=== PATIENT | female | born 1985 | race American Indian/Alaskan Native ===

== ENCOUNTER 2016-04-29 13:36 | Outpatient (CLI) | payer OTHER ==
[2016-04-29 14:56] LABS: Bilirubin,Urine NEG (Negative); Blood,Urine NEG (Negative); Ketones,Urine NEG (Negative); Leukocyte Esterase,Urine NEG (Negative); Mucus,Urine FEW /HPF; Nitrite,Urine NEG (Negative); Protein,Urine <15 mg/dL mg/dL (Negative); Urobilinogen,Urine < 2.0 mg/dL (<2.0)
[2016-04-29 15:03] LABS: Hematocrit 35.6 % (30.3-42.9); Hemoglobin 11.4 gm/dl (10.1-14.3); Mean Corpuscular HGB Conc 32 % (30-34); Mean Corpuscular Hemoglobin 29 pg (28-32); Mean Corpuscular Volume 91 fl (79-97); Platelet Count 277 K/mm3 (140-440); Red Blood Count 3.91 M/mm3 (3.65-5.03); Red Cell Distribution Width 15.2 % (13.2-15.2); White Blood Count 8.3 K/mm3 (4.5-11.0)
[2016-04-29 15:28] LABS: Alanine Aminotransferase 24 units/L (7-56); Lactate Dehydrogenase 169 units/L (91-180); Uric Acid 4.6 mg/dL (3.5-7.6)
[2016-04-29] MEDS ORDERED: LACTATED RINGERS 500 ML IV ONE (15:35)
[2016-04-29 16:21] VITALS: BP 133/61
== END 2016-04-29 16:40 | disposition home or self-care (01) ==
LOC: TRG 13:36
PROVIDERS: ATTEND Obstetrics & Gynecology
DX: O47.03 False labor before 37 completed weeks of gestation, third trimester (principal); Z3A.31 31 weeks gestation of pregnancy
CPT/HCPCS: 36415; 59025; 81001; 82565; 82962; 83615; 84450; 84460; 84550; 85027

== ENCOUNTER 2016-05-18 23:02 | Inpatient (IN) | payer OTHER ==
[2016-05-18] MEDS ORDERED: LACTATED RINGERS 500 ML IV ONE (23:10)
[2016-05-18] MEDS ORDERED: LACTATED RINGERS 1,000 ML ONE (23:51)
[2016-05-19] MEDS ORDERED: MAGNESIUM SULFATE 4GM/100ML 4 GM/100 ML BAG IV ONE ×2 (00:06→01:21)
[2016-05-19] MEDS ORDERED: MAGNESIUM SULFATE 40GM/1000ML 40 GM/1,000 ML BAG IV ONE (00:06)
[2016-05-19] MEDS ORDERED: APRESOLINE ONE (00:06)
[2016-05-19] MEDS: LACTATED RINGERS 1,000 ML IV SCH ×3 (00:10→10:46)
[2016-05-19] MEDS: APRESOLINE IV PRN ×4 (00:18→18:33)
[2016-05-19] MEDS: MAGNESIUM SULFATE 40GM/1000ML 40 GM/1,000 ML BAG IV SCH ×2 (00:40→19:18)
[2016-05-19] MEDS ORDERED: STADOL ONE (00:41)
[2016-05-19] MEDS: STADOL IV PRN ×2 (00:50→03:10)
[2016-05-19] MEDS ORDERED: POLYCILLIN/NS 2 GM/100 ML 2 GM/100 ML BAG IV ONE (01:18)
[2016-05-19] MEDS ORDERED: MINERAL OIL PO PRN ×2 (01:18→10:00)
[2016-05-19] MEDS ORDERED: ePHEDrine SULFATE IV PRN ×3 (01:18→10:00)
[2016-05-19] MEDS ORDERED: BRETHINE IVP PRN ×2 (01:18→10:00)
[2016-05-19] MEDS ORDERED: ZOFRAN IV PRN ×2 (01:18→16:48)
[2016-05-19] MEDS ORDERED: XYLOCAINE 2% INFILTRATI ONE ×2 (01:18→10:00)
[2016-05-19] MEDS ORDERED: BRETHINE SUB-Q PRN ×2 (01:18→10:00)
[2016-05-19 01:45] LABS: Bilirubin,Urine NEG (Negative); Blood,Urine MOD (Negative); Ketones,Urine NEG (Negative); Leukocyte Esterase,Urine NEG (Negative); Mucus,Urine FEW /HPF; Nitrite,Urine NEG (Negative); Urobilinogen,Urine < 2.0 mg/dL (<2.0)
[2016-05-19 01:46] LABS: Hematocrit 35.4 % (30.3-42.9); Hemoglobin 11.8 gm/dl (10.1-14.3); Mean Corpuscular HGB Conc 33 % (30-34); Mean Corpuscular Hemoglobin 30 pg (28-32); Mean Corpuscular Volume 90 fl (79-97); Platelet Count 280 K/mm3 (140-440); Red Blood Count 3.92 M/mm3 (3.65-5.03); Red Cell Distribution Width 15.6 % (13.2-15.2); White Blood Count 10.4 K/mm3 (4.5-11.0)
[2016-05-19] MEDS ORDERED: LACTATED RINGERS 1,000 ML IV SCH ×3 (02:00→16:48)
[2016-05-19 02:02] LABS: Alanine Aminotransferase 22 units/L (7-56)
[2016-05-19] MEDS ORDERED: NORMODYNE IV ONE (03:21)
[2016-05-19] MEDS ORDERED: ePHEDrine SULFATE ONE (04:05)
[2016-05-19 04:15] LABS: Urine Drugs of Abuse Note Disclamer
[2016-05-19 04:17] LABS: Lactate Dehydrogenase 386 units/L (91-180); Uric Acid 4.7 mg/dL (3.5-7.6)
[2016-05-19] MEDS ORDERED: NARCAN 2 MG/2 ML IV PRN (05:13)
--- NOTE | 2016-05-19 05:15 | Anesthesia Consultation ---
Anesthesia Consult and Med Hx Date of service: 05/19/16 - Airway Anesthetic Teeth Evaluation: Good ROM Head & Neck: Adequate Mental/Hyoid Distance: Adequate Mallampati Class: Class III Intubation Access Assessment: Possibly Difficult - Pulmonary Exam CTA: Yes - Cardiac Exam Cardiac Exam: RRR - Pre-Operative Health Status ASA Pre-Surgery Classification: ASA3 Proposed Anesthetic Plan: Epidural, Spinal - Pulmonary Hx Asthma: No COPD: No Hx Pneumonia: No - Cardiovascular System Hx Hypertension: Yes (pre-eclampsia) Hx Coronary Artery Disease: No - Central Nervous System Hx Seizures: No Hx Psychiatric Problems: No - Endocrine Hx Renal Disease: No Hx End Stage Renal Disease: No Hx Hypothyroidism: No Hx Hyperthyroidism: No - Hematic Hx Anemia: No Hx Sickle Cell Disease: No - Other Systems Hx Alcohol Use: No Hx Obesity: Yes (morbid, bmi >40)
[2016-05-19] MEDS ORDERED: fentaNYL-BUPIV 2 MCG/ML-0.125% 200 MCG/100 ML BAG EPIDURAL SCH (06:00)
[2016-05-19] MEDS: POLYCILLIN/NS 1 GM/50 ML 1 GM/50 ML BAG IV SCH ×3 (06:20→10:10)
[2016-05-19] MEDS ORDERED: CELESTONE SOLUSPAN IM NR (08:44)
--- NOTE | 2016-05-19 09:00 | History and Physical Report ---
History of Present Illness Date of examination: 05/19/16 Date of admission: 05/18/16 23:50 Chief complaint: rupture of membranes, elevated blood pressures History of present illness: Pt is a 31 year old female BARRY 06/27/16 at 34w3d who presents with rupture of membranes ar 8 or 9 pm on Tuesday May 17, 2016. She also began to have irregular contractions at that time. She denies vaginal bleeding. She has had care complicated by Gestational Diabetes with total non- compliance with no monitoring of her blood glucose level, and denial of this diagnosis on multiple occasions, morbid obesity, questionable chronic hypertension previously, genital herpes with no evidence of outbreak or prodrome , trichomonas treated with negative test of cure on 03/27/16, two vessel cord, uterine fibroids, and poor obstetric history with four previous spontaneous abortions prescribed vaginal progesterone. She is GBS unknown. 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: herpes (no lesions or prodrome ), trichomonas (treated with negative test of cure ) Family/Genetic History: heart disease, hypertension Social history: no significant social history, - Obstetrical History Expected Date of Delivery: 06/27/16 Actual Gestation: 34 Week(s) 3 Day(s) : 5 Para: 0 Hx # Term Pregnancies: 0 Number of Pregnancies: 0 Spontaneous Abortions: 4 Induced : 0 Number of Living Children: 0 Medications and Allergies Allergies Allergy/AdvReac Type Severity Reaction Status Date / Time No Known Allergies Allergy Verified 05/18/16 23:09 Home Medications Medication Instructions Recorded Confirmed Last Taken Type No Known Home Medications [No 11/17/15 05/18/16 Unknown History Reported Home Medications] Active Meds: Active Medications Betamethasone Acet/Betameth SodPhos (Celestone Soluspan) 12 mg IM ONCE ONE Stop: 05/19/16 08:45 Butorphanol Tartrate (Stadol) 2 mg IV Q2H PRN PRN Reason: Pain , Severe (7-10) Last Admin: 05/19/16 03:10 Dose: 2 mg Dextrose (D50w (25gm)) 50 ml IV PRN PRN PRN Reason: Hypoglycemia Ephedrine Sulfate (Ephedrine Sulfate) 10 mg IV Q2M PRN PRN Reason: Hypotension Stop: 05/19/16 08:52 Fentanyl (Sublimaze) 100 mcg IV Q2H PRN PRN Reason: Labor Pain Hydralazine HCl (Apresoline) 5 mg IV Q30MIN PRN PRN Reason: Blood Pressure Last Admin: 05/19/16 02:19 Dose: 5 mg Lactated Ringer's (Lactated Ringers) 1,000 mls @ 125 mls/hr IV DIRECT CHAYITO Last Admin: 05/19/16 04:13 Dose: 75 mls/hr Ampicillin Sodium (Polycillin/Ns 1 Gm/50 Ml) 1 gm in 50 mls @ 100 mls/hr IV Q4HR CHAYITO PRN Reason: Protocol Last Admin: 05/19/16 07:03 Dose: Not Given Oxytocin/Sodium Chloride (Pitocin/Ns 20 Unit/1000ml Drip) 20 units in 1,000 mls @ 125 mls/hr IV DIRECT CHAYITO Magnesium Sulfate (Magnesium Sulfate 40gm/1000ml) 40 gm in 1,000 mls @ 50 mls/ hr IV DIRECT CHAYITO PRN Reason: 2 GM/HR Last Admin: 05/19/16 00:40 Dose: 2 gm/hr, 50 mls/hr Fentanyl/Bupivacaine/Sodium Chlor (Fentanyl-Bupiv 2 Mcg/Ml-0.125%) 200 mcg in 100 mls @ 12 mls/hr EPIDURAL TITR CHAYITO PRN Reason: Protocol Last Admin: 05/19/16 05:30 Dose: 12 mls/hr Lactated Ringer's (Lactated Ringers) 1,000 mls @ 125 mls/hr IV DIRECT CHAYITO Oxytocin/Sodium Chloride (Pitocin/Ns 20 Unit/1000ml Drip) 20 units in 1,000 mls @ 125 mls/hr IV DIRECT CHAYITO Oxytocin/Sodium Chloride (Pitocin/Ns 30 Unit/500ml) 30 units in 500 mls @ 2 mls /hr IV TITR CHAYITO PRN Reason: Protocol Insulin Human Regular (Novolin R) 0 units SUB-Q Q2H CHAYITO PRN Reason: Protocol Lidocaine (Xylocaine 2%) 20 ml INFILTRATI ONCE ONE Stop: 05/19/16 08:48 Mineral Oil (Mineral Oil) 30 ml PO QHS PRN PRN Reason: Constipation Mineral Oil (Mineral Oil) 30 ml PO QHS PRN PRN Reason: Constipation Ondansetron HCl (Zofran) 4 mg IV Q8H PRN PRN Reason: Nausea And Vomiting Terbutaline Sulfate (Brethine) 0.25 mg SUB-Q ONCE PRN PRN Reason: Hyperstimulation/Hypertonicity Stop: 05/19/16 08:48 Terbutaline Sulfate (Brethine) 0.25 mg IVP ONCE PRN PRN Reason: Hyperstimulation/Hypertonicity Stop: 05/19/16 08:48 Review of Systems All systems: negative - Vital Signs Vital signs: Vital Signs Temp Pulse BP 97.9 F 99 H 181/88 05/18/16 23:11 05/18/16 23:11 05/18/16 23:11 Temp Pulse Resp BP Pulse Ox 98.4 F 112 H 22 134/58 100 05/19/16 06:26 05/19/16 08:48 05/19/16 06:26 05/19/16 08:41 05/19/16 08:48 - Physical Exam Breasts: Positive: deferred Cardiovascular: Regular rate Lungs: Positive: Clear to auscultation Abdomen: Positive: soft (obese, gravid ) Genitourinary (Female): Positive: normal external genitalia Uterus: Positive: enlarged (gravid ) Extremities: Positive: normal - Obstetrical FHR: category 2 Uterine Contraction Monitor Mode: External Cervical Dilatation: 8 Cervical Effacement Percentage: 100 station: -2 Uterine Contraction Pattern: Irregular Uterine Tone Measurement Phase: Resting Uterine Contraction Intensity: Moderate Results Result Diagrams: 05/19/16 00:05 05/19/16 00:05 Abnormal lab results 05/19/16 05/19/16 05/19/16 Range/Units 00:05 00:05 00:05 RDW 15.6 H (13.2-15.2) % AST 41 H (5-40) units/L Lactate Dehydrogenase 386 H (91-180) units/L Urine WBC (Auto) 12.0 H (0.0-6.0) /HPF All other labs normal. Assessment and Plan A: IUP at 34w3d PPROM Prolonged Rupture of Membranes Chronic hypertension with Gestational Diabetes- Non-Compliant Two Vessel Umbilical Cord Morbid Obesity Genital Herpes Poor Obstetric History Fibroid Uterus Trichomonas- treated with negative test of cure GBS unknown P: Admit to labor and delivery. GBS prophylaxis with Ampicillin. Accuchek every hour. Dose of steroids since pt is less than 36 wks. Pitocin augmentation.
[2016-05-19] MEDS ORDERED: D50W (25GM) IV PRN (10:00)
[2016-05-19] MEDS ORDERED: PITOCin/NS 20 UNIT/1000ML DRIP 20 UNITS/1,000 ML BAG IV SCH ×2 (10:00→16:48)
[2016-05-19] MEDS ORDERED: SUBLIMAZE IV PRN (10:00)
[2016-05-19] MEDS: PITOCin/NS 30 UNIT/500ML 30 UNITS/500 ML BAG IV SCH ×2 (10:01→10:47)
--- NOTE | 2016-05-19 12:00 | Procedure Note ---
OB Delivery Note - Delivery Date of Delivery: 05/19/16 Surgeon: NATASHA OGLESBY Estimated blood loss: other (400 mL) - Vaginal Delivery presentation: vertex Delivery position: OA Intrapartum events: PROM->1hr before delivery, preeclampsia, decreased FHT variability, mult.variable deceleratio Delivery augmentation: pitocin Delivery monitor: external FHT, external uterine Route of delivery: Delivery placenta: spontaneous Delivery cord: nuchal cord, 2 umbilical vessels Episiotomy: none Delivery laceration: none Anesthesia: epidural Delivery comments: Patient progressed to complete/complete/+2 impression delivered a viable male via spontaneous vaginal delivery under epidural anesthesia over intact perineum. Head delivered in ZACHERY position followed by shoulders and body. Nuchal cord and body cord 1 delivered through. Cord was clamped and cut was handed to NICU staff in attendance. Placenta delivered spontaneously, intact. The vagina and perineum explored. No lacerations noted. Estimated blood loss 400 mL. - A at 1 minute: 6 at 5 minutes: 8 Infant Gender: Male (@1139 am; 1910g (4lb 3oz))
[2016-05-19] MEDS: PITOCin/NS 20 UNIT/1000ML DRIP 20 UNITS/1,000 ML BAG IV SCH ×2 (13:03→21:28)
[2016-05-19] MEDS ORDERED: TUCKS PAD TP PRN (16:48)
[2016-05-19] MEDS ORDERED: CALCIUM GLUCONATE IV ONE (16:48)
[2016-05-19] MEDS ORDERED: TYLENOL PO PRN (16:48)
[2016-05-19] MEDS ORDERED: BENADRYL PO PRN (16:48)
[2016-05-19] MEDS ORDERED: DULCOLAX PR PRN (16:48)
[2016-05-19] MEDS ORDERED: NORCO 5/325 PO PRN (16:48)
[2016-05-19] MEDS ORDERED: PHENERGAN PO PRN (16:48)
[2016-05-19] MEDS ORDERED: SODIUM CHLORIDE FLUSH SYRINGE 10 ML IV NR (16:48)
[2016-05-19] MEDS ORDERED: DERMOPLAST TP PRN (16:48)
[2016-05-19] MEDS ORDERED: LANSINOH TP PRN (16:48)
[2016-05-19] MEDS ORDERED: PHENERGAN PR PRN (16:48)
[2016-05-19] MEDS ORDERED: MILK OF MAGNESIA PO PRN (16:48)
[2016-05-19] MEDS ORDERED: CALCIUM GLUCONATE 1,000 MG in NACL 0.9% 100 ML IV ONE (18:00)
[2016-05-19] MEDS: MOTRIN PO SCH (18:33)
[2016-05-19] MEDS: FEOSOL PO SCH (21:29)
[2016-05-20] MEDS ORDERED: BOOSTRIX IM ONE (06:00)
[2016-05-20 06:12] LABS: Hematocrit 35.9 % (30.3-42.9); Hemoglobin 11.2 gm/dl (10.1-14.3); Mean Corpuscular HGB Conc 31 % (30-34); Mean Corpuscular Hemoglobin 29 pg (28-32); Mean Corpuscular Volume 92 fl (79-97); Platelet Count 271 K/mm3 (140-440); Red Blood Count 3.91 M/mm3 (3.65-5.03); Red Cell Distribution Width 16.3 % (13.2-15.2)
[2016-05-20 06:30] LABS: White Blood Count 22.9 K/mm3 (4.5-11.0)
--- NOTE | 2016-05-20 08:43 | Progress Note ---
Assessment and Plan - Patient Problems (1) Chronic hypertension affecting Current Visit: Yes Status: Acute Plan to address problem: discontinue magnesium 24hrs after delivery will initiate antihypertensive (2) Gestational diabetes mellitus (GDM) affecting Current Visit: Yes Status: Acute (3) premature rupture of membranes Current Visit: Yes Status: Acute Qualifiers: PROM onset of labor timing: P Subjective - Subjective Date of service: 05/20/16 Interval history: Patient receiving magnesium therapy. She is currently without complaints. She admits to a history of chtn but she was not taking her meds. is currently in the NICU. Patient reports: appetite normal, pain well controlled [place]: in NICU Objective - Vital Signs Latest vital signs: Vital Signs Temp Pulse Pulse Resp BP BP Pulse Ox 05/20/16 07:35 97.9 F 85 22 153/72 05/20/16 06:45 85 18 149/78 05/20/16 05:05 98.1 F 86 20 137/69 05/20/16 02:07 90 150/72 05/20/16 00:30 98.4 F 87 20 171/71 05/19/16 22:30 79 20 161/89 05/19/16 20:10 98.5 F 89 20 160/90 05/19/16 18:33 86 171/83 05/19/16 18:30 86 171/83 05/19/16 16:35 99.2 F 88 20 155/107 05/19/16 15:15 99 H 156/75 05/19/16 15:00 106 H 197/94 05/19/16 14:45 106 H 144/70 05/19/16 14:30 98 H 135/63 05/19/16 14:24 97 H 94 05/19/16 14:19 99 H 95 05/19/16 14:18 98 H 94 05/19/16 14:15 96 H 133/56 05/19/16 14:14 100 H 95 05/19/16 14:13 100 H 94 05/19/16 14:09 101 H 95 05/19/16 14:07 102 H 94 05/19/16 14:04 102 H 94 05/19/16 14:02 103 H 94 05/19/16 14:00 93 H 95 H 18 140/64 140/64 95 05/19/16 13:59 95 H 95 05/19/16 13:57 100 H 94 05/19/16 13:54 100 H 96 05/19/16 13:50 104 H 93 05/19/16 13:49 101 H 95 05/19/16 13:45 93 H 140/65 05/19/16 13:44 102 H 94 05/19/16 13:39 104 H 96 05/19/16 13:34 101 H 96 05/19/16 13:30 107 H 106 H 18 153/67 153/67 97 05/19/16 13:29 106 H 96 05/19/16 13:24 108 H 97 05/19/16 13:19 98 H 96 05/19/16 13:15 110 H 205/73 05/19/16 13:14 104 H 96 05/19/16 13:09 102 H 97 05/19/16 13:04 102 H 97 05/19/16 13:00 101 H 102 H 18 128/59 128/59 95 05/19/16 12:59 102 H 95 05/19/16 12:54 106 H 97 05/19/16 12:49 107 H 97 05/19/16 12:45 102 H 18 97 05/19/16 12:44 102 H 97 05/19/16 12:39 105 H 95 05/19/16 12:38 106 H 94 05/19/16 12:34 107 H 96 05/19/16 12:30 112 H 108 H 18 150/70 150/70 98 05/19/16 12:29 108 H 98 05/19/16 12:24 110 H 97 05/19/16 12:19 110 H 97 05/19/16 12:15 110 H 108 H 18 148/68 148/68 98 05/19/16 12:14 108 H 98 05/19/16 12:09 115 H 98 05/19/16 12:04 113 H 98 05/19/16 12:00 99.2 F 113 H 116 H 18 153/62 161/72 98 05/19/16 11:59 114 H 98 05/19/16 11:56 122 H 161/72 05/19/16 11:53 122 H 100 05/19/16 11:48 121 H 100 05/19/16 11:43 105 H 99 05/19/16 11:41 122 H 143/87 05/19/16 11:38 121 H 100 05/19/16 11:33 114 H 100 05/19/16 11:28 110 H 100 05/19/16 11:27 117 H 141/89 05/19/16 11:23 114 H 100 05/19/16 11:18 117 H 100 05/19/16 11:13 99 H 100 05/19/16 11:11 99 H 145/70 05/19/16 11:08 102 H 100 05/19/16 11:03 106 H 100 05/19/16 10:58 102 H 100 05/19/16 10:56 104 H 147/70 05/19/16 10:53 107 H 100 05/19/16 10:48 107 H 100 05/19/16 10:45 113 H 146/70 05/19/16 10:43 106 H 100 05/19/16 10:41 104 H 143/66 05/19/16 10:38 110 H 100 05/19/16 10:33 103 H 100 05/19/16 10:28 105 H 100 05/19/16 10:26 107 H 129/62 05/19/16 10:23 108 H 100 05/19/16 10:18 106 H 100 05/19/16 10:13 118 H 100 05/19/16 10:11 111 H 136/63 05/19/16 10:08 110 H 100 05/19/16 10:03 129 H 100 05/19/16 09:58 112 H 100 05/19/16 09:56 112 H 131/60 05/19/16 09:53 111 H 100 05/19/16 09:48 109 H 100 05/19/16 09:43 109 H 100 05/19/16 09:41 109 H 132/57 05/19/16 09:38 109 H 100 05/19/16 09:33 111 H 100 05/19/16 09:28 110 H 100 05/19/16 09:26 111 H 137/66 05/19/16 09:23 115 H 100 05/19/16 09:18 121 H 100 05/19/16 09:13 122 H 100 05/19/16 09:11 112 H 128/59 05/19/16 09:08 118 H 100 05/19/16 09:03 113 H 100 05/19/16 08:58 115 H 100 05/19/16 08:57 113 H 130/59 05/19/16 08:53 114 H 100 05/19/16 08:48 112 H 100 05/19/16 08:43 110 H 100 Intake and Output 05/19/16 05/20/16 05/20/16 22:59 06:59 14:59 Intake Total 1100 1600 Output Total 4600 3700 Balance -3500 -2100 Intake: IV 500 1000 Lactated Ringers 1,000 ml 300 600 @ 75 mls/hr IV DIRECT CHAYITO Rx#:[id number] MAGNESIUM SULFATE 40GM/ 200 400 1000ML 40 gm In 1,000 ml @ 2 GM/HR 50 mls/hr IV DIRECT CHAYITO Rx#:[id number] Oral 240 240 Intake, Free Water 360 360 Output: Urine 4600 3700 Indwelling Catheter 4600 3700 Other: Total, Intake Amount 240 240 Total, Output Amount 800 800 - Labs Labs: Abnormal lab results 05/19/16 05/19/16 05/19/16 Range/Units 08:41 10:06 11:05 WBC (4.5-11.0) K/mm3 RDW (13.2-15.2) % POC Glucose 196 H 157 H 135 H (70-105) Magnesium (1.7-2.3) mg/dL 05/20/16 05/20/16 05/20/16 Range/Units 00:29 05:51 05:51 WBC 22.9 H (4.5-11.0) K/mm3 RDW 16.3 H (13.2-15.2) % POC Glucose (70-105) Magnesium 5.2 H 5.3 H (1.7-2.3) mg/dL
[2016-05-20] MEDS: MOTRIN PO SCH ×2 (09:04→18:00)
[2016-05-20] MEDS: NORMODYNE PO SCH ×2 (09:44→22:33)
[2016-05-20] MEDS: FEOSOL PO SCH ×2 (09:44→22:39)
[2016-05-20] MEDS: LACTATED RINGERS 1,000 ML IV SCH (09:58)
[2016-05-20] MEDS ORDERED: PRENATAL VITAMIN PO SCH (10:00)
[2016-05-20] MEDS ORDERED: M-M-R II VACCINE SUB-Q ONE (12:01)
--- NOTE | 2016-05-20 15:50 | Progress Note ---
Subjective Date of service: 05/20/16 Interval history: 1st day after natural vaginal delivery Patient is in the bed, comfortable. Pain is well controlled with pain meds. Has not ambulated due to Mg2So4 infusion. No residual neurological deficit. No anesthesia complications Objective - Constitutional Vitals: Vital Signs - 12hr 05/20/16 05/20/16 05/20/16 05:05 06:45 07:35 Temperature 98.1 F 97.9 F Pulse Rate Pulse Rate [ 86 85 85 From Monitor] Respiratory 20 18 22 Rate Blood Pressure Blood Pressure 137/69 149/78 153/72 [Left Arm] 05/20/16 09:44 Temperature Pulse Rate 80 Pulse Rate [ From Monitor] Respiratory Rate Blood Pressure 151/86 Blood Pressure [Left Arm] - Labs CBC & Chem 7: 05/20/16 05:51 05/19/16 00:05 Labs: Abnormal lab results 05/20/16 05/20/16 05/20/16 Range/Units 00:29 05:51 05:51 WBC 22.9 H (4.5-11.0) K/mm3 RDW 16.3 H (13.2-15.2) % Magnesium 5.2 H 5.3 H (1.7-2.3) mg/dL
[2016-05-21] MEDS: MOTRIN PO SCH ×2 (00:38→06:24)
--- NOTE | 2016-05-21 12:37 | Progress Note ---
Assessment and Plan A: PPD#2 s/p at 34 wks, PPROM, Prolonged ROM and Gestational Diabetes (non- compliant) P: Discharge today with follow up in 2 wks. Subjective - Subjective Date of service: 05/21/16 Principal diagnosis: s/p PPROM and at 34 wks, Gestational Diabetes Interval history: Pt in NICU with baby. Patient reports: appetite normal, voiding normally, pain well controlled, ambulating normally [place]: in NICU Objective - Vital Signs Latest vital signs: Vital Signs Temp Pulse Pulse Resp BP BP 05/21/16 09:44 99 F 76 20 142/78 05/21/16 04:30 98.6 F 67 16 122/76 05/21/16 00:00 98.6 F 77 16 114/56 05/20/16 22:40 72 151/70 05/20/16 22:33 72 151/70 05/20/16 21:02 98.6 F 75 16 120/79 05/20/16 16:30 98.3 F 88 20 138/70 Intake and Output 05/20/16 05/21/16 05/21/16 22:59 06:59 14:59 Intake Total 800 Output Total 400 Balance -400 800 Intake: Oral 300 Intake, Free Water 500 Output: Urine 400 Void 400 Other: Total, Intake Amount 300 Total, Output Amount 400 Voiding Method Toilet # Voids 2 Void 1 1 - Exam Breasts: Present: deferred Cardiovascular: Present: Regular rate Lungs: Present: Clear to auscultation Abdomen: Present: soft (obese) Uterus: Present: firm, fundal height below umbilicus Extremities: Present: edema
--- NOTE | 2016-05-21 12:41 | Discharge Summary ---
Providers - Providers Date of Admission: 05/18/16 23:50 Date of discharge: 05/21/16 Attending physician: NATASHA OGLESBY 05/19/16 16:48 Consult to Biofuels Production Technician [CONS] Q8H Reason For Exam: assistance with , [facility] 05/20/16 00:48 Consult to Biofuels Production Technician [CONS] Q8H Reason For Exam: assistance with , [facility] 05/20/16 08:48 Consult to Biofuels Production Technician [CONS] Q8H Reason For Exam: assistance with , [facility] Primary care physician: NATASHA OGLESBY Hospitalization Reason for admission: rupture of membranes Delivery: Procedure details: spontaneous vaginal delivery; please see delivery note. Episiotomy: none Laceration: none Other procedures: none complications: none Discharge diagnosis: delivery Hospital course: Pt admitted for PPROM and ultimately had an which she tolerated well. Her course was uncomplicated and she met discharge criteria on PPD#2. Condition at discharge: Stable Disposition: DISCHARGED TO HOME OR SELFCARE - Discharge Diagnoses (1) Chronic hypertension affecting Status: Acute (2) Genital herpes affecting Status: Acute (3) Gestational diabetes mellitus (GDM) affecting Status: Acute (4) Morbid obesity Status: Acute Qualifiers: Obesity type: O (5) Pre-eclampsia in third trimester Status: Acute (6) premature rupture of membranes Status: Acute Qualifiers: PROM onset of labor timing: P (7) Prolonged rupture of membranes Status: Acute (8) Two vessel umbilical cord in [place] , antepartum Status: Acute Plan - Discharge Medications Prescriptions: Ferrous Sulfate [Feosol 325 MG tab] 325 mg PO BID #60 tablet Ibuprofen [Motrin] 800 mg PO Q8HR PRN #30 tablet PRN Reason: Pain oxyCODONE /ACETAMINOPHEN [Percocet 5/325] 1 tab PO Q6HR PRN #30 tablet PRN Reason: Pain Vit-Fe Fumar-FA [ Vitamin] 1 tab PO QDAY #30 tablet - Provider Discharge Summary Activity: routine, no sex for 6 weeks, no heavy lifting 4 weeks, no strenuous exercise Diet: routine Instructions: routine Additional instructions: [] Smoking cessation referral if applicable(refer to patient education folder for contact #) [] Refer to [facility]'s [facility] Booklet Call your doctor immediately for: * Fever > 100.5 * Heavy vaginal bleeding ( >1 pad per hour) * Severe persistent headache * Shortness of breath * Reddened, hot, painful area to leg or breast * Drainage or odor from incision. * Keep incision clean and dry at all times and follow doctor's instructions regarding bathing/showering - Follow up plan Follow up: NATASHA OGLESBY MD [Primary Care Provider] - 06/09/16
[2016-05-21 16:09] VITALS: BP 142/73
[2016-05-21] MEDS: NORMODYNE PO SCH (19:26)
== END 2016-05-21 19:30 | disposition home or self-care (01) | DRG 774 ==
LOC: TRG 23:02 → LD 23:50 → OB 05-19 16:11
PROVIDERS: ADMIT Obstetrics & Gynecology; ATTEND Obstetrics & Gynecology
PROC: 3E0S3CZ (ICD-10-PCS; principal; 2016-05-19)
PROC: 10E0XZZ Delivery of Products of Conception, External Approach (ICD-10-PCS; principal; 2016-05-19)
PROC: 00HU33Z Insertion of Infusion Device into Spinal Canal, Percutaneous Approach (ICD-10-PCS; principal; 2016-05-19)
DX: O42.913 Preterm premature rupture of membranes, unspecified as to length of time between rupture and onset of labor, third trimester (principal); O98.52 Other viral diseases complicating childbirth; O98.82 Other maternal infectious and parasitic diseases complicating childbirth; Z68.41 Body mass index [BMI] 40.0-44.9, adult; B00.9 Herpesviral infection, unspecified; A59.9 Trichomoniasis, unspecified; O34.13 Maternal care for benign tumor of corpus uteri, third trimester; D25.9 Leiomyoma of uterus, unspecified; E66.01 Morbid (severe) obesity due to excess calories; O99.214 Obesity complicating childbirth; O24.429 Gestational diabetes mellitus in childbirth, unspecified control; O11.4 Pre-existing hypertension with pre-eclampsia, complicating childbirth; O76 Abnormality in fetal heart rate and rhythm complicating labor and delivery; O69.89X0 Labor and delivery complicated by other cord complications, not applicable or unspecified; Z3A.34 34 weeks gestation of pregnancy; Z37.0 Single live birth; Z82.49 Family history of ischemic heart disease and other diseases of the circulatory system; Z91.19 Patient's noncompliance with other medical treatment and regimen; O09.293 Supervision of pregnancy with other poor reproductive or obstetric history, third trimester; O69.81X0 Labor and delivery complicated by cord around neck, without compression, not applicable or unspecified
CPT/HCPCS: 36415; 80307; 81001; 82565; 82962; 83615; 83735; 84450; 84460; 84550; 85027; 86850; 86900; 86901; 88307; 90471; 90715; 99211; G0463; J0290; J0360; J0595; J0610; J0702; J2590; J3475; J7120

== ENCOUNTER 2018-10-07 12:42 | Emergency (ER) | payer MEDICAID, OTHER ==
--- NOTE | 2018-10-07 12:58 | Event Note ---
ED Screening Note Date of service: 10/07/18 Time: 12:57 ED Screening Note: 33 y o presents with vaginal bleeding started yesterday states 9 weeks gestation LMP: 07/31 This initial assessment/diagnostic orders/clinical plan/treatment(s) is/are subject to change based on patients health status, clinical progression and re- assessment by fellow clinical providers in the ED. Further treatment and workup at subsequent clinical providers discretion. Patient/guardian urged not to elope from the ED as their condition may be serious if not clinically assessed and managed. Initial orders include:
[2018-10-07 13:19] LABS: Basophils % (Auto) 0.7 % (0.0-1.8); Eosinophils # (Auto) 0.1 K/mm3 (0.0-0.4); Eosinophils % (Auto) 1.9 % (0.0-4.3); Hematocrit 33.4 % (30.3-42.9); Hemoglobin 11.1 gm/dl (10.1-14.3); Lymphocytes # (Auto) 2.2 K/mm3 (1.2-5.4); Mean Corpuscular HGB Conc 33 % (30-34); Mean Corpuscular Volume 89 fl (79-97); Monocytes # (Auto) 0.4 K/mm3 (0.0-0.8); Platelet Count 264 K/mm3 (140-440); Red Blood Count 3.77 M/mm3 (3.65-5.03); Red Cell Distribution Width 14.7 % (13.2-15.2)
[2018-10-07 13:39] LABS: BUN/Creatinine Ratio 17; Blood Urea Nitrogen 15 mg/dL (7-17); Calcium 8.6 mg/dL (8.4-10.2); Hemolysis Index 46
[2018-10-07 14:14] LABS: Bacteria,Urine 1+ /HPF (Negative); Bilirubin,Urine NEG (Negative); Blood,Urine LG (Negative); Color,Urine Yellow (Yellow); Protein,Urine <15 mg/dL mg/dL (Negative); Urobilinogen,Urine < 2.0 mg/dL (<2.0)
[2018-10-07 14:22] LABS: RBC,Urine > 182.0 /HPF (0.0-6.0)
--- NOTE | 2018-10-07 16:58 | Emergency Department Report ---
<SATINDER HANNA - Last Filed: 10/07/18 18:45> ED General Adult HPI - General Chief complaint: Vaginal Bleeding Stated complaint: VAG BLEED (PREG) Time Seen by Provider: 10/07/18 12:56 Source: patient Mode of arrival: Ambulatory Limitations: No Limitations - History of Present Illness Initial comments: 33 yo Afrcan [place] female states that she had vaginal bleeding yesterday that has carried over to today. The pt stated that she was seen on 10/01/18 by her refrigeration specialist Paula Nowak NP of [facility]. She states that she received both a blood and urine test in addition to an U/S that showed her 10 weeks . -: days(s) (2 days) Location: abdomen Radiation: abdomen Severity scale (0 -10): 7 Quality: aching Consistency: colicky Improves with: none Worsens with: none Associated Symptoms: denies other symptoms Treatments Prior to Arrival: none - Related Data Previous Rx's Medication Instructions Recorded Last Taken Type Ferrous Sulfate [Feosol 325 MG tab] 325 mg PO BID #60 tablet 05/21/16 Unknown Rx Ibuprofen [Motrin] 800 mg PO Q8HR PRN #30 tablet 05/21/16 Unknown Rx Vit-Fe Fumar-FA [ 1 tab PO QDAY #30 tablet 05/21/16 Unknown Rx Vitamin] oxyCODONE /ACETAMINOPHEN [Percocet 1 tab PO Q6HR PRN #30 tablet 05/21/16 Unknown Rx 5/325] Amlodipine Besylate [Norvasc] 5 mg PO QDAY #30 tablet 10/07/18 Unknown Rx Allergies Allergy/AdvReac Type Severity Reaction Status Date / Time No Known Allergies Allergy Verified 05/18/16 23:09 ED Review of Systems Constitutional: denies: chills, fever Eyes: denies: eye pain, eye discharge, vision change ENT: denies: ear pain, throat pain Respiratory: denies: cough, shortness of breath, wheezing Cardiovascular: denies: chest pain, palpitations Endocrine: no symptoms reported Gastrointestinal: as per HPI Genitourinary: denies: urgency, dysuria, discharge Musculoskeletal: denies: back pain, joint swelling, arthralgia Skin: denies: rash, lesions Neurological: denies: headache, weakness, paresthesias Psychiatric: denies: anxiety, depression Hematological/Lymphatic: denies: easy bleeding, easy bruising ED Past Medical Hx - Past Medical History Hx Hypertension: Yes (pre-eclampsia) Hx Congestive Heart Failure: No Hx Diabetes: No Hx Deep Vein Thrombosis: No Hx Renal Disease: No Hx Sickle Cell Disease: No Hx Seizures: No Hx Asthma: No Hx COPD: No Hx HIV: No - Social History Smoking Status: Never Smoker Substance Use Type: None - Medications Home Medications: Home Medications Medication Instructions Recorded Confirmed Last Taken Type Ferrous Sulfate [Feosol 325 MG tab] 325 mg PO BID #60 tablet 05/21/16 Unknown Rx Ibuprofen [Motrin] 800 mg PO Q8HR PRN #30 tablet 05/21/16 Unknown Rx Vit-Fe Fumar-FA [ 1 tab PO QDAY #30 tablet 05/21/16 Unknown Rx Vitamin] oxyCODONE /ACETAMINOPHEN [Percocet 1 tab PO Q6HR PRN #30 tablet 05/21/16 Unknown Rx 5/325] Amlodipine Besylate [Norvasc] 5 mg PO QDAY #30 tablet 10/07/18 Unknown Rx ED Physical Exam - General Limitations: No Limitations General appearance: alert, in no apparent distress - Head Head exam: Present: atraumatic, normocephalic - Eye Eye exam: Present: normal appearance - ENT ENT exam: Present: mucous membranes moist - Neck Neck exam: Present: normal inspection - Respiratory Respiratory exam: Present: normal lung sounds bilaterally. Absent: respiratory distress - Cardiovascular Cardiovascular Exam: Present: regular rate, normal rhythm. Absent: systolic murmur, diastolic murmur, rubs, gallop - GI/Abdominal GI/Abdominal exam: Present: tenderness (epigastric), normal bowel sounds. Absent: guarding - Rectal Rectal exam: Present: deferred - Extremities Exam Extremities exam: Present: normal inspection - Back Exam Back exam: Present: normal inspection - Neurological Exam Neurological exam: Present: alert, oriented X3 - Psychiatric Psychiatric exam: Present: normal affect, normal mood - Skin Skin exam: Present: warm, dry, intact, normal color. Absent: rash ED Medical Decision Making - Lab Data Result diagrams: 10/07/18 13:08 10/07/18 13:08 - Medical Decision Making 33 yo Afrcan [place] female states that she had vaginal bleeding yesterday that has carried over to today. The pt stated that she was seen on 10/01/18 by her refrigeration specialist Paula Nowak NP of [facility]. She states that she received both a blood and urine test in addition to an U/S that showed her 10 weeks . CBC andf UA were ordered. The Quant. HCG showed a 3.39 level. A Transvaginal US was ordered and the results are listed below. The patient was informed that she had a miscarriage and that she needs f/u with her OBGYN in 1-3 days. If symptoms worsen or new severe symptoms arise return to ER for further eval. Patient: BERTA ARNETT MR#: [id number] 77 : 1985 Acct:[id number] Age/Sex: 33 / F ADM Date: 10/07/18 Loc: ED Attending Dr: Ordering Physician: SATINDER HANNA PA-C Date of Service: 10/07/18 Procedure(s): US transvaginal Accession Number(s): [id number] cc: SATINDER HANNA PA-C ULTRASOUND PELVIS INDICATION / CLINICAL INFORMATION: Vaginal bleeding. TECHNIQUE: Transvaginal. Duplex Color Doppler used: Yes. COMPARISON: None available FINDINGS: UTERUS: Retroflexed - Appearance (if present): No significant abnormality. - Size in cm (if present): 8.2 x 4.6 x 5.9. - Endometrial Complex (if present): No significant abnormality.. Thickness in cm (if measured) = 0.9 - Mass lesions: Subcentimeter hypoechoic lesion in the anterior uterine body is consistent with a subserosal fibroid. There are also two 2 cm exophytic fibroids arising from the left side of the uterine body and fundal region. - Additional findings: None. RIGHT ADNEXA: No significant ovarian cyst or mass. Normal color Doppler blood flow. LEFT ADNEXA: No significant ovarian cyst or mass. Normal color Doppler blood flow. URINARY BLADDER: No significant abnormality. FREE FLUID: Trace free fluid in the cul-de-sac ADDITIONAL FINDINGS: None. IMPRESSION: 1. No acute finding. Several uterine fibroids are seen. Signer Name: Zoran Nielson MD Signed: 10/07/2018 6:05 PM Workstation Name: [id number] Transcribed By: JESSICA Dictated By: Zoran Nielson MD Electronically Authenticated By: Zoran Nielson MD Signed Date/Time: 10/07/18 1805 ED Disposition Clinical Impression: Spontaneous miscarriage Disposition: DC-01 TO HOME OR SELFCARE Is pt being admited?: No Does the pt Need Aspirin: No Condition: Stable Instructions: Spontaneous Miscarriage (ED) Additional Instructions: The patient was informed that she had a miscarriage and that she needs f/u with her OBGYN in 1-3 days. Pt stated she will f/u with her OBGYN at [facility]. If symptoms worsen or new severe symptoms arise return to ER for further eval. Prescriptions: Amlodipine Besylate [Norvasc] 5 mg PO QDAY #30 tablet [facility] - 3-5 Days Forms: Work/School Release Form(ED) Time of Disposition: 18:51 <PENELOPE BARROS - Last Filed: 10/07/18 19:51> ED Review of Systems ROS: Stated complaint: VAG BLEED (PREG) Other details as noted in HPI ED Course Vital Signs 10/07/18 10/07/18 12:57 19:01 Temperature 98.7 F 99 F Pulse Rate 76 64 Respiratory 20 18 Rate Blood Pressure 182/92 Blood Pressure 190/105 [Left] O2 Sat by Pulse 99 100 Oximetry ED Medical Decision Making - Lab Data Result diagrams: 10/07/18 13:08 10/07/18 13:08 - Radiology Data Radiology results: report reviewed Patient: BERTA ARNETT MR#: [id number] 77 : 1985 Acct:[id number] Age/Sex: 33 / F ADM Date: 10/07/18 Loc: ED Attending Dr: Ordering Physician: SATINDER HANNA PA-C Date of Service: 10/07/18 Procedure(s): US transvaginal Accession Number(s): [id number] cc: SATINDER HANNA PA-C ULTRASOUND PELVIS INDICATION / CLINICAL INFORMATION: Vaginal bleeding. TECHNIQUE: Transvaginal. Duplex Color Doppler used: Yes. COMPARISON: None available FINDINGS: UTERUS: Retroflexed - Appearance (if present): No significant abnormality. - Size in cm (if present): 8.2 x 4.6 x 5.9. - Endometrial Complex (if present): No significant abnormality.. Thickness in cm (if measured) = 0.9 - Mass lesions: Subcentimeter hypoechoic lesion in the anterior uterine body is consistent with a subserosal fibroid. There are also two 2 cm exophytic fibroids arising from the left side of the uterine body and fundal region. - Medical Decision Making Received this patient from Rachel. It was noted that patient has an elevated blood pressure but asymptomatic with stable kidney function. Patient did not inform ther provider that she is currently taking Labetalol for her blood pressure and that her OB Dr. Genoveva Nowak that she placed her Progestrone via vaginal on 10/03/18. Patient is to inform her doctor that she came to the ER. Critical care attestation.: If time is entered above; I have spent that time in minutes in the direct care of this critically ill patient, excluding procedure time.
--- NOTE | 2018-10-07 18:10 | Ultrasound Report ---
ULTRASOUND PELVIS INDICATION / CLINICAL INFORMATION: Vaginal bleeding. TECHNIQUE: Transvaginal. Duplex Color Doppler used: Yes. COMPARISON: None available FINDINGS: UTERUS: Retroflexed - Appearance (if present): No significant abnormality. - Size in cm (if present): 8.2 x 4.6 x 5.9. - Endometrial Complex (if present): No significant abnormality.. Thickness in cm (if measured) = 0.9 - Mass lesions: Subcentimeter hypoechoic lesion in the anterior uterine body is consistent with a sub serosal fibroid. There are also two 2 cm exophytic fibroids arising from the left side of the uterine body and fundal region. - Additional findings: None. RIGHT ADNEXA: No significant ovarian cyst or mass. Normal color Doppler blood flow. LEFT ADNEXA: No significant ovarian cyst or mass. Normal color Doppler blood flow. URINARY BLADDER: No significant abnormality. FREE FLUID: Trace free fluid in the cul-de-sac ADDITIONAL FINDINGS: None. IMPRESSION: 1. No acute finding. Several uterine fibroids are seen. Signer Name: Zoran Nielson MD Signed: 10/07/2018 6:05 PM Workstation Name: [email or web address] [id number]
[2018-10-07] MEDS: CATAPRES PO ONE ×2 (19:18→19:20)
[2018-10-07 19:20] VITALS: BP 189/98
== END 2018-10-07 19:53 | disposition home or self-care (01) ==
LOC: ED 12:42
DX: O03.9 Complete or unspecified spontaneous abortion without complication (principal); I10 Essential (primary) hypertension; Z79.899 Other long term (current) drug therapy
CPT/HCPCS: 36415; 76830; 80048; 81001; 84702; 85025; 87086; 99284

== ENCOUNTER 2021-09-03 18:01 | Emergency (ER) | payer BC, MEDICAID, OTHER ==
[2021-09-04] MEDS ORDERED: cloNIDine 0.2 MG TAB PO ONE (04:41)
[2021-09-04 06:19] VITALS: BP 159/92
--- NOTE | 2021-09-04 07:36 | Emergency Department Report ---
ED General Adult HPI - General Chief complaint: High BP Stated complaint: BLOOD PRESSURE HIGH PUI?: No Time Seen by Provider: 09/04/21 07:32 Source: patient Mode of arrival: Ambulatory Limitations: No Limitations - History of Present Illness Initial comments: Pt reports she was sent here after having a medical screening for job due to elevated BP. Pt reports she has not taken BP meds is > 2 years. Pt denies neuro deficits or symptoms. no cp. no sob. -: Gradual, year(s) Severity scale (0 -10): 0 Improves with: none Worsens with: none Associated Symptoms: denies other symptoms Treatments Prior to Arrival: none - Related Data Previous Rx's Medication Instructions Recorded Last Taken Type Amlodipine Besylate [Norvasc] 5 mg PO QDAY #30 tablet 09/04/21 Unknown Rx Allergies Allergy/AdvReac Type Severity Reaction Status Date / Time No Known Allergies Allergy Verified 05/18/16 23:09 ED Review of Systems ROS: Stated complaint: BLOOD PRESSURE HIGH Other details as noted in HPI Comment: All other systems reviewed and negative ED Past Medical Hx - Past Medical History Previous Medical History?: Yes Hx Hypertension: Yes (pre-eclampsia) Hx Congestive Heart Failure: No Hx Diabetes: No Hx Deep Vein Thrombosis: No Hx Renal Disease: No Hx Sickle Cell Disease: No Hx Seizures: No Hx Asthma: No Hx COPD: No Hx HIV: No - Surgical History Past Surgical History?: No - Family History Family history: no significant - Social History Smoking Status: Never Smoker Substance Use Type: None - Medications Home Medications: Home Medications Medication Instructions Recorded Confirmed Last Taken Type Amlodipine Besylate [Norvasc] 5 mg PO QDAY #30 tablet 09/04/21 Unknown Rx ED Physical Exam - General Limitations: No Limitations General appearance: alert, in no apparent distress - Head Head exam: Present: atraumatic, normocephalic - Eye Eye exam: Present: normal appearance - ENT ENT exam: Present: mucous membranes moist - Neck Neck exam: Present: normal inspection - Respiratory Respiratory exam: Present: normal lung sounds bilaterally. Absent: respiratory distress - Cardiovascular Cardiovascular Exam: Present: regular rate, normal rhythm. Absent: systolic murmur, diastolic murmur, rubs, gallop - GI/Abdominal GI/Abdominal exam: Present: soft, normal bowel sounds - Extremities Exam Extremities exam: Present: normal inspection - Back Exam Back exam: Present: normal inspection - Neurological Exam Neurological exam: Present: alert, oriented X3 - Psychiatric Psychiatric exam: Present: normal affect, normal mood - Skin Skin exam: Present: warm, dry, intact, normal color. Absent: rash ED Course Vital Signs 09/03/21 09/04/21 09/04/21 19:01 04:32 04:58 Temperature 98.7 F Pulse Rate 78 65 69 Respiratory 18 20 Rate Blood Pressure 240/119 Blood Pressure 234/109 240/129 [Right] O2 Sat by Pulse 100 100 Oximetry 09/04/21 06:18 Temperature Pulse Rate Respiratory Rate Blood Pressure Blood Pressure 159/92 [Right] O2 Sat by Pulse Oximetry ED Medical Decision Making - EKG Data -: EKG Interpreted by Me EKG shows normal: sinus rhythm Rate: normal - EKG Data When compared to previous EKG there are: no significant change - Medical Decision Making Vital Signs 09/03/21 09/04/21 09/04/21 19:01 04:32 04:58 Temperature 98.7 F Pulse Rate 78 65 69 Respiratory 18 20 Rate Blood Pressure 240/119 Blood Pressure 234/109 240/129 [Right] O2 Sat by Pulse 100 100 Oximetry 09/04/21 06:18 Temperature Pulse Rate Respiratory Rate Blood Pressure Blood Pressure 159/92 [Right] O2 Sat by Pulse Oximetry no complaints pt sent from her job for clearance due to inc bp she is off her norvasc now for 2 years 12 lead in triage nap clonidine po - with downtrending bp pt being dc home with dc plan of care including diet, meds, activity and follow up. She verbalizes understanding of plan of care. - Differential Diagnosis elevated bp/med clearance Critical care attestation.: If time is entered above; I have spent that time in minutes in the direct care of this critically ill patient, excluding procedure time. ED Disposition Clinical Impression: Non-adherence to medical treatment Hypertension Qualifiers: Hypertension type: unspecified Qualified Code(s): I10 - Essential (primary) hypertension Disposition: 01 HOME / SELF CARE / HOMELESS Is pt being admited?: No Does the pt Need Aspirin: No Condition: Stable Instructions: Hypertension, Adult, Hypertension (ED) Additional Instructions: drink a lot of water low salt diet no fast food or fried food med daily as ordered follow up with pcp referral below Prescriptions: Amlodipine Besylate [Norvasc] 5 mg PO QDAY #30 tablet Referrals: NEIL CHATMAN MD [Primary Care Provider] - 3-5 Days Forms: Work/School Release Form(ED) Time of Disposition: 07:34
--- NOTE | 2021-09-04 09:05 | Electrocardiograph Report ---
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
== END 2021-09-04 08:00 | disposition home or self-care (01) ==
LOC: ED 18:01
DX: I10 Essential (primary) hypertension (principal)
CPT/HCPCS: 93005; 99282